=== PATIENT | male | born 1990 | race African-American/Black ===

== ENCOUNTER 2016-08-01 08:27 | Emergency (ER) | payer OTHER ==
[~2016-08-01] VITALS: Ht 195.6 cm; Wt 72.6 kg
[2016-08-01] MEDS ORDERED: IV NORMAL SALINE 1000ML BAG 1,000 ML IV SCH (08:36)
--- NOTE | 2016-08-01 08:44 | PHYS DOC ---
Adult General Chief Complaint Chief Complaint: ABDOMINAL PAIN HPI HPI Patient is a 25 year old male presents emergency Department with a complaint of bilateral lower abdominal pain that radiates to each flank that was of sudden onset at approximately 3 AM this morning that woke him from sleep. He denies nausea, vomiting or diarrhea. Last by mouth intake was at 10 PM. Patient denies history of chronic abdominal/GI disease. He had a appendectomy performed 2 months ago at [facility]. He states he recovered without difficulty. He denies previous history of bowel obstructions or other abdominal surgeries. He denies history of pain in his testicles or penis. He denies hematuria or dysuria. He denies history of disease. He does state that "my urine stream is weaker than usual". Patient reports that movement does provoke the pain somewhat. He denies any straining of his abdominal wall muscles secondary to lifting or moving any heavy objects. He denies difficulty having bowel movements or reports normal caliber of his stool. Last bowel movement was yesterday. Review of Systems Review of Systems Constitutional: Denies fever or chills [] Eyes: Denies change in visual acuity, redness, or eye pain [] HENT: Denies nasal congestion or sore throat [] Respiratory: Denies cough or shortness of breath [] Cardiovascular: No additional information not addressed in HPI [] GI: Denies abdominal pain, nausea, vomiting, bloody stools or diarrhea [] : Denies dysuria or hematuria [] Musculoskeletal: Denies back pain or joint pain [] Integument: Denies rash or skin lesions [] Neurologic: Denies headache, focal weakness or sensory changes [] Endocrine: Denies polyuria or polydipsia [] Current Medications Current Medications Current Medications Medications (Trade) Dose Ordered Sig/Cec[place] Start Time Stop Time Status Last Admin Dose Admin Iohexol (Omnipaque 300 Mg/ml) 75 ml 1X ONCE 08/01/16 09:00 08/01/16 09:01 DC 08/01/16 09:46 75 ML Morphine Sulfate 5 mg 1X ONCE 08/01/16 08:45 08/01/16 08:46 DC 08/01/16 09:08 5 MG Ondansetron HCl (Zofran) 4 mg 1X ONCE 08/01/16 08:45 08/01/16 08:46 DC 08/01/16 09:08 4 MG Sodium Chloride (Iv Sodium Chloride 0.9% 1000ml Bag) 1,000 ml @ 1,000 mls/hr Q1H 08/01/16 08:36 08/01/16 09:35 DC 08/01/16 09:07 1,000 MLS/HR Sodium Chloride (Normal Saline Flush) 10 ml QSHIFT PRN 08/01/16 08:45 Allergies Allergies Allergies Coded Allergies Type Severity Reaction Last Updated Verified Fish Containing Products Allergy Unknown 08/01/16 Yes Physical Exam Physical Exam Constitutional: Well developed, well nourished, mild distress, non-toxic appearance. HENT: Normocephalic, atraumatic, bilateral external ears normal, oropharynx moist, no oral exudates, nose normal. [] Eyes: PERRLA, EOMI, conjunctiva normal, no discharge. [] Neck: Normal range of motion, no tenderness, supple, no stridor. [] Cardiovascular:Heart rate regular rhythm, no murmur Lungs & Thorax: Bilateral breath sounds clear to auscultation Abdomen: Abdomen is soft and scaphoid. There are hypoactive bowel sounds in all 4 quadrants. There is no palpable defect of the abdominal wall or pulsatile masses. There is tenderness to palpation to bilateral lower quadrants with voluntary guarding. Heeltap is negative. Skin: Warm, dry, no erythema, no rash. [] Back: No tenderness, no CVA tenderness. Extremities: No tenderness, no cyanosis, no clubbing, ROM intact, no edema. [] Neurologic: Alert and oriented X 3, normal motor function, normal sensory function, no focal deficits noted. [] Psychologic: Affect normal, judgement normal, mood normal. [] Current Patient Data Vital Signs Vital Signs Date Time Temp Pulse Resp B/P Pulse Ox O2 Delivery O2 Flow Rate FiO2 08/01/16 09:08 16 08/01/16 08:45 97.5 66 147/99 100 Room Air 97.5 Lab Values Laboratory Tests Test 08/01/16 08:55 08/01/16 09:25 White Blood Count 2.4x10^3/uL (4.0-11.0) L Red Blood Count 4.57x10^6/uL (4.30-5.70) Hemoglobin 14.8g/dL (13.0-17.5) Hematocrit 43.1% (39.0-53.0) Mean Corpuscular Volume 94fL (79-100) Mean Corpuscular Hemoglobin 32pg (25-35) Mean Corpuscular Hemoglobin Concent 34g/dL (31-37) Red Cell Distribution Width 13.6% (11.5-14.5) Platelet Count 129x10^3/uL (140-400) L Neutrophils (%) (Auto) 44% (31-73) Lymphocytes (%) (Auto) 37% (24-48) Monocytes (%) (Auto) 13% (0-9) H Eosinophils (%) (Auto) 4% (0-3) H Basophils (%) (Auto) 2% (0-3) Neutrophils # (Auto) 1.1x10^3uL (1.8-7.7) L Lymphocytes # (Auto) 0.9x10^3/uL (1.0-4.8) L Monocytes # (Auto) 0.3x10^3/uL (0.0-1.1) Eosinophils # (Auto) 0.1x10^3/uL (0.0-0.7) Basophils # (Auto) 0.0x10^3/uL (0.0-0.2) Sodium Level 144mmol/L (136-145) Potassium Level 4.2mmol/L (3.5-5.1) Chloride Level 106mmol/L (98-107) Carbon Dioxide Level 30mmol/L (21-32) Anion Gap 8 (6-14) Blood Urea Nitrogen 13mg/dL (8-26) Creatinine 1.2mg/dL (0.7-1.3) Estimated GFR (Cockcroft-Gault) 73.8 BUN/Creatinine Ratio 11 (6-20) Glucose Level 104mg/dL (70-99) H Calcium Level 9.5mg/dL (8.5-10.1) Total Bilirubin 0.7mg/dL (0.2-1.0) Aspartate Amino Transferase (AST) 22U/L (15-37) Alanine Aminotransferase (ALT) 25U/L (16-63) Alkaline Phosphatase 85U/L (46-116) Total Protein 8.7g/dL (6.4-8.2) H Albumin 4.4g/dL (3.4-5.0) Albumin/Globulin Ratio 1.0 (1.0-1.7) Lipase 93U/L (73-393) Urine Collection Type Unknown Urine Color Yellow Urine Clarity Clear Urine pH 6.0 Urine Specific [place] 1.025 Urine Protein Negativemg/dL (NEG-TRACE) Urine Glucose (UA) Negativemg/dL (NEG) Urine Ketones (Stick) Negativemg/dL (NEG) Urine Blood Negative (NEG) Urine Nitrite Negative (NEG) Urine Bilirubin Negative (NEG) Urine Urobilinogen Dipstick 1.0mg/dL (0.2 mg/dL) Urine Leukocyte Esterase Negative (NEG) Urine RBC 0/HPF (0-2) Urine WBC Occ/HPF (0-4) Urine Squamous Epithelial Cells Occ/LPF Urine Bacteria 0/HPF (0-FEW) Urine Mucus Marked/LPF Urine Opiates Screen Pos (NEG) Urine Methadone Screen Neg (NEG) Urine Barbiturates Neg (NEG) Urine Phencyclidine Screen Neg (NEG) Urine Amphetamine/Methamphetamine Neg (NEG) Urine Benzodiazepines Screen Neg (NEG) Urine Cocaine Screen Neg (NEG) Urine Cannabinoids Screen Pos (NEG) Urine Ethyl Alcohol Neg (NEG) Laboratory Tests 08/01/16 08:55 Laboratory Tests 08/01/16 08:55 EKG EKG [] Radiology/Procedures Radiology/Procedures [[facility] [address] [place] [address] IMAGING REPORT Signed PATIENT: VINNIE MEADE ACCOUNT: [id number] : 1990 LOCATION: ER AGE: 25 SEX: M EXAM STATUS: REG ER ORD. PHYSICIAN: SAMMY DAVENPORT REASON: Lower abdominal pain, APPY at [facility] 2 months ago PROCEDURE: CT ABD PELV W/ IV CONTRST ONLY CT scan of the abdomen with contrast 08/01/2016 Clinical history: Lower abdominal pain. History of appendectomy 2 months ago. Technique: After the images administration of 75 cc of Omnipaque 300, contiguous, 5 mm axial sections were obtained through the abdomen and pelvis. One or more of the following individualized dose reduction techniques were utilized for this study: 1. Automated exposure control. 2. Adjustment of the mA and/or kV according to patient size. 3. Use of iterative reconstruction technique. Findings: No previous imaging studies are available for comparison. The absence of oral contrast limits this study for the detection of bowel pathology. Images through the lung bases are within normal limits. The liver, spleen, pancreas, adrenal glands and kidneys are within normal limits. The abdominal aorta tapers normally. The gallbladder is well-distended. No free fluid or free air is abdomen. There is no evidence of bowel obstruction. Air and stool is seen throughout the colon. Surgical clips are seen medial to the cecum consistent with an appendectomy. No abnormal fluid collection is seen. Images through the pelvis demonstrate the urinary bladder to be slightly contracted. Punctate calcifications are seen within the pelvis consistent with phleboliths. No free fluid is seen. Minimal S shaped curvature of the thoracolumbar spine is noted. Impression: No acute abnormality is seen. DICTATED and SIGNED BY: LORELEI CORRAL MD DATE: 08/01/16 1007 CC: SAMMY DAVENPORT; NON,STAFF ~ Course & Med Decision Making Course & Med Decision Making Patient's had an uncomplicated stay here in the emergency department. I reexamined his abdomen at 1035. He states he is pain-free at this time. Patient CT scan with IV contrast here today is normal. His laboratory test, with the exception of neutropenia and thrombocytopenia is normal. He has a normal hemoglobin and hematocrit. Patient is postop 60 days from a medical appendectomy without any evidence of abscess, bowel obstruction, nephro or ureterolithiasis. Patient states he is comfortable going home and following up with his primary care doctor. He states he will call Wednesday to do so. Dragon Disclaimer Dragon Disclaimer This electronic medical record was generated, in whole or in part, using a voice recognition dictation system. Departure Departure Impression: Primary Impression: Abdominal pain Disposition: HOME, SELF-CARE Condition: IMPROVED Patient Instructions: Abdominal Pain, [id number] Additional Instructions: 1. The CT scan of your abdomen and pelvis, as well as your laboratory test here today show no evidence of infection, bowel obstruction, complications from your recent appendectomy or other areas of concern requiring hospitalization. 2. Review the discharge instructions provided for self-care and reasons to return to the emergency department. 3. Take the medication as prescribed. 4. Contact your primary care doctor Wednesday morning to schedule follow-up appointment for reevaluation this week. Scripts Hydrocodone/Apap 5-325 ([place] 5-325 Tablet)1 Each Tablet1 Tab PO PRN Q6HRS PRN BREAKTHROUGH PAIN #15 TAB Ref 0 Prov:SAMMY DAVENPORT 08/01/16 Dicyclomine Hcl (Bentyl)10 Mg Capsule1 Cap PO TID abdominal cramping/pain #21 CAP Ref 0 Prov:SAMMY DAVENPORT 08/01/16 Problem Qualifiers Primary Impression: Abdominal pain Abdominal location: lower abdomen, unspecified Qualified Code: R10.30 - Lower abdominal pain, unspecified SAMMY DAVENPORT Aug 01, 2016 08:44
[2016-08-01] MEDS ORDERED: MORPHINE SULFATE 10 MG/ML VIAL. IV ONE (08:45)
[2016-08-01] MEDS ORDERED: 0.9 % SODIUM CHLORIDE 10 ML DISP.SYRIN. IV PRN (08:45)
[2016-08-01] MEDS ORDERED: ONDANSETRON PF 4 MG/2 ML VIAL. IV ONE (08:45)
[2016-08-01] MEDS ORDERED: IOHEXOL 300 MG/ML 75 ML VIAL IV ONE (09:00)
[2016-08-01 09:15] LABS: CALCIUM 9.5 mg/dL (8.5-10.1); CREATININE 1.2 mg/dL (0.7-1.3); GFR 73.8; POTASSIUM 4.2 mmol/L (3.5-5.1)
[2016-08-01 09:19] LABS: BASO % 2 % (0-3); EOS % 4 % (0-3); HEMATOCRIT 43.1 % (39.0-53.0); HEMOGLOBIN 14.8 g/dL (13.0-17.5); LYMPH # 0.9 x10^3/uL (1.0-4.8); LYMPH % 37 % (24-48); MEAN CORPUSCULAR HEMOGLOBIN 32 pg (25-35); MEAN CORPUSCULAR HGB CONC 34 g/dL (31-37); MEAN CORPUSCULAR VOLUME 94 fL (79-100); MONO % 13 % (0-9); NEUT % 44 % (31-73); PLATELET COUNT 129 x10^3/uL (140-400); RED BLOOD COUNT 4.57 x10^6/uL (4.30-5.70); RED CELL DISTRIBUTION WIDTH 13.6 % (11.5-14.5); WHITE BLOOD COUNT 2.4 x10^3/uL (4.0-11.0)
[2016-08-01 09:21] LABS: ALBUMIN 4.4 g/dL (3.4-5.0); TOTAL BILIRUBIN 0.7 mg/dL (0.2-1.0); TOTAL PROTEIN 8.7 g/dL (6.4-8.2)
[2016-08-01 09:45] LABS: BILIRUBIN,URINE NEGATIVE (NEG); GLUCOSE,URINE NEGATIVE (NEG); NITRITE,URINE NEGATIVE (NEG); PROTEIN,URINE NEGATIVE (NEG-TRACE)
[2016-08-01 09:54] LABS: BARBITURATES NEG (NEG); BENZODIAZEPINES NEG (NEG); CANNABINOIDS POS (NEG); COCAINE NEG (NEG); ETHANOL, URINE NEG (NEG); METHADONE NEG (NEG); OPIATES POS (NEG); PHENCYCLIDINE NEG (NEG)
[2016-08-01 10:18] LABS: BACTERIA,URINE 0 /HPF (0-FEW); RBC,URINE 0 /HPF (0-2); SQUAMOUS EPITHELIAL CELL,UR OCC /LPF; WBC,URINE OCC /HPF (0-4)
--- NOTE | 2016-08-01 10:18 | RAD ---
CT scan of the abdomen with contrast 08/01/2016 Clinical history: Lower abdominal pain. History of appendectomy 2 months ago. Technique: After the images administration of 75 cc of Omnipaque 300, contiguous, 5 mm axial sections were obtained through the abdomen and pelvis. One or more of the following individualized dose reduction techniques were utilized for this study: 1. Automated exposure control. 2. Adjustment of the mA and/or kV according to patient size. 3. Use of iterative reconstruction technique. Findings: No previous imaging studies are available for comparison. The absence of oral contrast limits this study for the detection of bowel pathology. Images through the lung bases are within normal limits. The liver, spleen, pancreas, adrenal glands and kidneys are within normal limits. The abdominal aorta tapers normally. The gallbladder is well-distended. No free fluid or free air is abdomen. There is no evidence of bowel obstruction. Air and stool is seen throughout the colon. Surgical clips are seen medial to the cecum consistent with an appendectomy. No abnormal fluid collection is seen. Images through the pelvis demonstrate the urinary bladder to be slightly contracted. Punctate calcifications are seen within the pelvis consistent with phleboliths. No free fluid is seen. Minimal S shaped curvature of the thoracolumbar spine is noted. Impression: No acute abnormality is seen.
[2016-08-01 10:30] VITALS: BP 127/79
[2016-08-01] MEDS ORDERED: HYDR-971 PO (10:44)
[2016-08-01] MEDS ORDERED: DICY10CA53 PO (10:44)
== END 2016-08-01 10:51 | disposition home or self-care (01) ==
LOC: ER 08:27
DX: R10.32 Left lower quadrant pain (principal); R10.31 Right lower quadrant pain; Z90.49 Acquired absence of other specified parts of digestive tract; Z91.013 Allergy to seafood
CPT/HCPCS: 36415; 74177; 80053; 80305; 80320; 81001; 83690; 85027; 96361; 96374; 96375; 99285; J2270; J2405; J7030; Q9967; G0481

== ENCOUNTER 2016-09-17 09:31 | Emergency (ER) | payer OTHER ==
[~2016-09-17] VITALS: Ht 195.6 cm; Wt 74.8 kg
[~2016-09-17 09:31] MED LIST: DICY10CA53 PO; HYDR-971 PO
[2016-09-17 09:35] VITALS: BP 139/86
[2016-09-17] MEDS ORDERED: IBUP-1060 PO (09:48)
[2016-09-17] MEDS ORDERED: HYDR-971 PO (09:48)
[2016-09-17] MEDS ORDERED: PENI500T PO (09:48)
[2016-09-17] MEDS ORDERED: CHLO15MO2 PO (09:48)
--- NOTE | 2016-09-17 10:10 | PHYS DOC ---
Past Medical History Past Medical History: No Pertinent History Past Surgical History: Appendectomy Additional Information: 0.5 PPD Alcohol Use: None Drug Use: Marijuana Adult General Chief Complaint Chief Complaint: DENTAL PROBLEM HPI HPI Patient is a 25 year old male who presents with dental pain. States is in the back bottom tooth, has been worsening over the last 3 days. He is attempted Tylenol without relief. No dentist. No fevers. Review of Systems Review of Systems Constitutional: Denies fever or chills [] Eyes: Denies change in visual acuity, redness, or eye pain [] HENT: Denies nasal congestion or sore throat [] Respiratory: Denies cough or shortness of breath [] Cardiovascular: No additional information not addressed in HPI [] GI: Denies abdominal pain, nausea, vomiting, bloody stools or diarrhea [] : Denies dysuria or hematuria [] Musculoskeletal: Denies back pain or joint pain [] Integument: Denies rash or skin lesions [] Neurologic: Denies headache, focal weakness or sensory changes [] Allergies Allergies Allergies Coded Allergies Type Severity Reaction Last Updated Verified Fish Containing Products Allergy Unknown 08/01/16 Yes Physical Exam Physical Exam Constitutional: Well developed, well nourished, no acute distress, non-toxic appearance. [] HENT: Normocephalic, atraumatic, bilateral external ears normal, oropharynx moist, no oral exudates, nose normal. No trismus, poor dentition throughout, multiple dental caries with fractured tooth of #14 that is causing patient's pain, mild surrounding erythema without fluctuance Eyes: PERRLA, EOMI, conjunctiva normal, no discharge. [] Neck: Normal range of motion, no tenderness, supple, no stridor. [] Cardiovascular:Heart rate regular Lungs & Thorax: No respiratory distress Neurologic: Alert and oriented X 3, normal motor function, normal sensory function, no focal deficits noted. [] Psychologic: Affect normal, judgement normal, mood normal. [] Current Patient Data Vital Signs Vital Signs Date Time Temp Pulse Resp B/P (MAP) Pulse Ox O2 Delivery O2 Flow Rate FiO2 09/17/16 09:35 97.9 75 16 139/86 (103) 100 Room Air 97.9 EKG EKG [] Radiology/Procedures Radiology/Procedures [] Course & Med Decision Making Course & Med Decision Making Pertinent Labs and Imaging studies reviewed. (See chart for details) Patient discharged with penicillin, ibuprofen, a few [place], Peridex, referral sheet for dentist. Informed he needs to follow up where he will continue to have problems. Patient voice understanding. Use [place] for breakthrough pain, use caution, no driving or operating machinery while taking.. Dragon Disclaimer Dragon Disclaimer This electronic medical record was generated, in whole or in part, using a voice recognition dictation system. Departure Departure Impression: Primary Impression: Dental infection Disposition: HOME, SELF-CARE Condition: STABLE Patient Instructions: Abscessed Tooth, [id number], Dental Caries-Brief Scripts Penicillin V Potassium (PENICILLIN V POTASSIUM) 500 Mg Tablet 1 TAB PO QID, #20 TAB Prov: VIV MCKINNEY MD 09/17/16 Chlorhexidine Gluconate (PERIDEX) 15 Ml Mouthwash 15 ML PO BID, #473 ML swish for 30 seconds and spit Prov: VIV MCKINNEY MD 09/17/16 Hydrocodone/Apap 5-325 ([place] 5-325 TABLET) 1 Each Tablet 1-2 EACH PO PRN Q6HRS Y for PAIN, #158 as needed for pain Prov: VIV MCKINNEY MD 09/17/16 Ibuprofen (IBUPROFEN) 800 Mg Tablet 800 MG PO PRN TID Y for PAIN, #20 TAB take with food or milk to avoid upsetting stomach Prov: VIV MCKINNEY MD 09/17/16 VIV MCKINNEY MD Sep 17, 2016 10:10
== END 2016-09-17 09:56 | disposition home or self-care (01) ==
LOC: ER 09:31
DX: K04.7 Periapical abscess without sinus (principal); B99.9 Unspecified infectious disease
CPT/HCPCS: 99283

== ENCOUNTER 2017-02-26 07:44 | Emergency (ER) | payer OTHER ==
[~2017-02-26] VITALS: Ht 195.6 cm; Wt 72.6 kg
[~2017-02-26 07:44] MED LIST changes: +CHLO15MO2 PO; +IBUP-1060 PO; +PENI500T PO
[2017-02-26 07:53] VITALS: BP 145/82
[2017-02-26] MEDS ORDERED: CLIN150C14 PO (08:08)
[2017-02-26] MEDS ORDERED: HYDR-971 PO (08:08)
--- NOTE | 2017-02-26 08:08 | PHYS DOC ---
Past Medical History Past Medical History: No Pertinent History Past Surgical History: Appendectomy Alcohol Use: None Drug Use: None Adult General Chief Complaint Chief Complaint: DENTAL PROBLEM HPI HPI Patient is a 26 year old male presents to the emergency department with a history of dental problems. Patient states he has a dental appointment with an oral surgeon next month. Patient states he had seen a dentist last month and was placed on Amoxicillin. Patient denies fever, chills, nausea or vomiting. Denies foul taste in the mouth. Review of Systems Review of Systems Constitutional: Denies fever or chills [] Eyes: Denies change in visual acuity, redness, or eye pain [] HENT: Denies nasal congestion or sore throat. Dental pain Respiratory: Denies cough or shortness of breath [] Cardiovascular: No additional information not addressed in HPI [] GI: Denies abdominal pain, nausea, vomiting, bloody stools or diarrhea [] : Denies dysuria or hematuria [] Musculoskeletal: Denies back pain or joint pain [] Integument: Denies rash or skin lesions [] Neurologic: Denies headache, focal weakness or sensory changes [] Endocrine: Denies polyuria or polydipsia [] All other systems were reviewed and found to be within normal limits, except as documented in this note. Allergies Allergies Allergies Coded Allergies Type Severity Reaction Last Updated Verified Fish Containing Products Allergy Unknown 08/01/16 Yes Physical Exam Physical Exam Constitutional: Well developed, well nourished, no acute distress, non-toxic appearance. [] HENT: Normocephalic, atraumatic, bilateral external ears normal, oropharynx moist, no oral exudates, nose normal. Bilateral TM normal. Patient with multiple areas in the mouth that appear red with white areas in the middle. Patient was noted to have multiple dental decays. Eyes: PERRLA, EOMI, conjunctiva normal, no discharge. [] Neck: Normal range of motion, no tenderness, supple, no stridor. [] Cardiovascular:Heart rate regular rhythm, no murmur [] Lungs & Thorax: Bilateral breath sounds clear to auscultation [] Extremities: No tenderness, no cyanosis, no clubbing, ROM intact, no edema. [] Neurologic: Alert and oriented X 3, normal motor function, normal sensory function, no focal deficits noted. [] Psychologic: Affect normal, judgement normal, mood normal. [] Current Patient Data Vital Signs Vital Signs Date Time Temp Pulse Resp B/P (MAP) Pulse Ox O2 Delivery O2 Flow Rate FiO2 02/26/17 07:53 97.7 75 16 97 Room Air 97.7 EKG EKG [] Radiology/Procedures Radiology/Procedures [] Course & Med Decision Making Course & Med Decision Making Pertinent Labs and Imaging studies reviewed. (See chart for details) Patient was recommended to use warm salt water mouth rinses 4 times a day. Antibiotics as prescribed, pain medication as prescribed. Patient was also instructed that the pain medication will cause drowsiness do not take if you need to be alert and oriented. Recommended that he keep the appointment he has with oral surgeon. Signs and symptoms to return to the emergency department has been provided. I've spoken with the patient and/or caregivers. I've explained the patient's condition, diagnosis and treatment plan based on information available to me at this time. I've answered the patient's and/or caregivers questions and addressed any concerns. The patient and/or caregivers have a good understanding the patient's diagnosis, condition and treatment plan as can be expected at this point. Vital signs have been stabilized. The patient's condition is stable for discharge from the emergency department. The patient will pursue further outpatient evaluation with her primary care provider or other designated consulting physician as outlined in the discharge instructions. Patient and/or caregivers are agreeable to this plan of care and follow-up instructions have been explained in detail. The patient and/or caregivers have received these instructions in written format and expressed understanding of these discharge instructions. The patient and her caregivers are aware that if any significant change in condition or worsening of symptoms should prompt him to immediately return to this of the closest emergency department.~ If an emergent department is not readily available I would encourage him to call 911. [] Dragon Disclaimer Dragon Disclaimer This electronic medical record was generated, in whole or in part, using a voice recognition dictation system. Departure Departure Impression: Primary Impression: Dental infection Disposition: HOME, SELF-CARE Condition: STABLE Referrals: NON,STAFF (PCP) Patient Instructions: Dental Abscess Additional Instructions: Activity as tolerated Medication as prescribed [place] will cause drowsiness do not take if you need to be alert and oriented Warm salt water mouth rinses 4 times a day Keep your appointment you have with your dentist next mouth Return to emergency department as needed for signs and symptoms that become worse Scripts Hydrocodone/Apap 5-325 ([place] 5-325 TABLET) 1 Each Tablet 1 TAB PO PRN Q6HRS Y for PAIN, #15 TAB 0 Refills Prov: MAGGY VALLE APRN 02/26/17 Clindamycin Hcl (CLINDAMYCIN HCL) 150 Mg Capsule 3 CAP PO TID for 10 Days, CAP Prov: MAGGY VALLE APRN 02/26/17 MAGGY VALLE APRN Feb 26, 2017 08:08
== END 2017-02-26 08:19 | disposition home or self-care (01) ==
LOC: ER 07:44
DX: K04.7 Periapical abscess without sinus (principal); Z91.013 Allergy to seafood
CPT/HCPCS: 99283